=== PATIENT | female | born 1990 | race Caucasian/White ===

== ENCOUNTER 2017-08-02 20:24 | Emergency (ER) | payer OTHER ==
[2017-08-02 20:44] VITALS: BP 115/69; PULSE 86; TEMP 98.3; BMI 43.9
--- NOTE | 2017-08-02 22:18 | PDOC ---
History of Present Illness - General Chief Complaint: Urinary Problem Stated Complaint: PAIN, ACUTE Time Seen by Provider: 08/02/17 21:29 Past History - Past Medical History Allergies/Adverse Reactions: Allergies Allergy/AdvReac Type Severity Reaction Status Date / Time codeine [Codeine] Allergy Severe Rash Verified 08/02/17 20:44 Home Medications: Ambulatory Orders Cephalexin Monohydrate [Keflex -] 500 mg PO BID #14 capsule 08/02/17 Phenazopyridine HCl [Pyridium -] 100 mg PO TID #15 tablet 08/02/17 Thyroid Disease: Yes (HYPERTHYRODISM) - Immunization History Immunization Up to Date: Yes - Psycho/Social/Smoking Cessation Hx Anxiety: No Suicidal Ideation: No Smoking Status: Yes Smoking History: Never smoked Have you smoked in the past 12 months: No Number of Cigarettes Smoked Daily: 6 If you are a former smoker, when did you quit?: no Cigars Per Day: 5 Information on smoking cessation initiated: No 'Breaking Loose' booklet given: 10/04/13 Hx Alcohol Use: No Drug/Substance Use Hx: No Substance Use Type: None *Physical Exam - Vital Signs Last Vital Signs Temp Pulse Resp BP Pulse Ox 98.3 F 86 16 115/69 100 08/02/17 20:42 08/02/17 20:42 08/02/17 20:42 08/02/17 20:42 08/02/17 20:42 ED Treatment Course - ADDITIONAL ORDERS Additional order review: Laboratory Results 08/02/17 21:10 Urine HCG, Qual Negative *DC/Admit/Observation/Transfer Diagnosis at time of Disposition: UTI (urinary tract infection) Qualifiers: Urinary tract infection type: acute cystitis Hematuria presence: with hematuria Qualified Code(s): N30.01 - Acute cystitis with hematuria - Discharge Dispostion Disposition: HOME Condition at time of disposition: Good Admit: No - Prescriptions Prescriptions: Cephalexin Monohydrate [Keflex -] 500 mg PO BID #14 capsule Phenazopyridine HCl [Pyridium -] 100 mg PO TID #15 tablet - Referrals Referrals: Porsha Ramírez MD [Primary Care Provider] - - Patient Instructions Printed Discharge Instructions: DI for Urinary Tract Infection (UTI) Additional Instructions: Your urine was negative today, however given all of your symptoms, we decided to treat you for a UTI. Take the Keflex as prescribed (antibiotic) take the whole prescription even if you feel better. Take the pyridium after meals to help with the burning. Drink plenty of fluids. Take motrin as needed for pain. Follow up with your primary care doctor next week. Return to the ED if you have worsening pain, fevers, chills, back pain, or any changes in your symptoms
[2017-08-02 22:27] LABS: URINE APPEARANCE CLEAR; URINE BILIRUBIN NEGATIVE (NEGATIVE); URINE BLOOD 1+ (NEGATIVE); URINE COLOR STRAW; URINE GLUCOSE (UA) NEGATIVE (NEGATIVE); URINE KETONE NEGATIVE (NEGATIVE); URINE LEUK ESTERASE NEGATIVE (NEGATIVE); URINE NITRITE NEGATIVE (NEGATIVE); URINE PROTEIN NEGATIVE (NEGATIVE); URINE UROBILINOGEN NEGATIVE mg/dL (0.2-1.0)
[2017-08-02 22:31] LABS: URINE BACTERIA RARE /hpf (NONE SEEN); URINE MUCUS RARE; URINE RBC <1 /hpf (0-3); URINE WBC 1 /hpf (3-5)
== END 2017-08-02 23:06 | disposition home or self-care (01) ==
LOC: SUPCPDRO 20:24 → JERFT 20:24 → JER 20:24 → JERFT 23:06
DX: N30.01 Acute cystitis with hematuria (principal); E05.90 Thyrotoxicosis, unspecified without thyrotoxic crisis or storm
CPT/HCPCS: 81003; 81015; 84703; 87086; 99281-25

== ENCOUNTER 2017-12-18 19:42 | Emergency (ER) | payer OTHER ==
[2017-12-18 20:03] VITALS: BP 148/88; PULSE 89; TEMP 98.2; BMI 42.4
--- NOTE | 2017-12-18 20:06 | PDOC ---
Rapid Medical Evaluation Time Seen by Provider: 12/18/17 19:55 Medical Evaluation: Allergies Allergy/AdvReac Type Severity Reaction Status Date / Time codeine [Codeine] Allergy Severe Rash Verified 08/02/17 20:44 12/18/17 19:56 Pt with c/o: irritation to new tattoo ( 4 days ago) on rt arm. no fever, keeps uncovers, occurred with previous tattoo Pt on brief exam: noted vesicles to left forearm. no streaking, no drainage Pt ordered for: none Pt to proceed to the ED Discharge Disposition - Diagnosis Skin irritation - Referrals - Patient Instructions - Post Discharge Activity
--- NOTE | 2017-12-18 21:24 | PDOC ---
History of Present Illness - General Chief Complaint: Rash Stated Complaint: RASH Time Seen by Provider: 12/18/17 19:55 History Source: Patient Exam Limitations: No Limitations - History of Present Illness Initial Comments: 12/18/17 21:19 The 27-year-old woman with past medical history of hypothyroidism who presents emergency Department with erythema to tattoo on her right forearm which was done 4 days ago. Patient states she's been applying Bactine and bacitracin to the tattoo but now has had minor. When drainage and erythema. Patient had similar episode 2 another tattoo done multiple years ago for which she was prescribed "antibiotic cream" which cleared the infection. She denies fevers, chills, shortness of breath, numbness or tingling to fingers or hand unaffected arm. Past History - Past Medical History Allergies/Adverse Reactions: Allergies Allergy/AdvReac Type Severity Reaction Status Date / Time codeine [Codeine] Allergy Severe Rash Verified 12/18/17 20:03 Home Medications: Ambulatory Orders Mupirocin Ointment [Bactroban] 1 applic TP TID #1 tube 12/18/17 Thyroid Disease: Yes (HYPERTHYRODISM) - Immunization History Immunization Up to Date: Yes - Suicide/Smoking/Psychosocial Hx Smoking Status: Yes Smoking History: Never smoked Have you smoked in the past 12 months: No Number of Cigarettes Smoked Daily: 6 If you are a former smoker, when did you quit?: no Cigars Per Day: 5 'Breaking Loose' booklet given: 10/04/13 Hx Alcohol Use: No Drug/Substance Use Hx: No Substance Use Type: None Review of Systems - Review of Systems Able to Perform ROS?: Yes Is the patient limited Urdu proficient: No Constitutional: No: Symptoms Reported HEENTM: No: Symptoms Reported Respiratory: No: Symptoms reported Cardiac (ROS): No: Symptoms Reported ABD/GI: No: Symptoms Reported : No: Symptoms Reported Musculoskeletal: No: Symptoms Reported Integumentary: Yes: See HPI Neurological: No: Symptoms reported Endocrine: No: Symptoms Reported *Physical Exam - Vital Signs Last Vital Signs Temp Pulse Resp BP Pulse Ox 98.2 F 89 20 148/88 99 12/18/17 20:00 12/18/17 20:00 12/18/17 20:00 12/18/17 20:00 12/18/17 20:00 - Physical Exam Respiratory/Chest: positive: Lungs Clear, Normal Breath Sounds. negative: Respiratory Distress, Accessory Muscle Use Cardiovascular: positive: Regular Rhythm, Regular Rate. negative: Edema, Murmur Integumentary: positive: Other (Erythema and minimal drainage noted from tattoo on the volar and dorsal aspects of her right forearm. No streaking present.) Neurologic: positive: Alert, Normal Response, Motor Strength 5/5 Medical Decision Making - Medical Decision Making 12/18/17 21:21 A/P: 27-year-old female with cellulitis with minimal purulent drainage noted to tattoo placed 4 days ago. Discharge patient Prescription for Bactroban *DC/Admit/Observation/Transfer Diagnosis at time of Disposition: Cellulitis Qualifiers: Site of cellulitis: extremity Site of cellulitis of extremity: upper extremity Laterality: right Qualified Code(s): L03.113 - Cellulitis of right upper limb - Discharge Dispostion Disposition: HOME Condition at time of disposition: Stable Admit: No - Prescriptions Prescriptions: Mupirocin Ointment [Bactroban] 1 applic TP TID #1 tube - Referrals Referrals: Porsha Ramírez MD [Primary Care Provider] - - Patient Instructions Additional Instructions: Keep affected area clean. Apply mupirocin ointment to affected area 3 times a day. Return to primary doctor or this ER in 3 days for wound check. Return to emergency department sooner if he notices any streaking in your arm, worsening redness, worsening pain, worsening drainage or any other concerns. Thank you very much for choosing to provide your emergent healthcare needs. - Post Discharge Activity
== END 2017-12-18 21:29 | disposition home or self-care (01) ==
LOC: JERFT 19:42
DX: L03.113 Cellulitis of right upper limb (principal); E03.9 Hypothyroidism, unspecified
CPT/HCPCS: 99281-25

== ENCOUNTER 2018-02-12 15:37 | Emergency (ER) | payer SELFPAY ==
[2018-02-12 15:54] VITALS: BMI 42.0
[2018-02-12] MEDS ORDERED: SODIUM CHLORIDE 1,000 ML IV STA (17:06)
[2018-02-12] MEDS ORDERED: ONDANSETRON 4 MG/2 ML VIAL IVPUSH ONE (17:06)
[2018-02-12] MEDS ORDERED: FAMOTIDINE 20 MG/50 ML IVPB 20 MG/50 ML MG IVPB ONE ×2 (17:15→17:49)
--- NOTE | 2018-02-12 17:21 | PDOC ---
Attending Attestation - Resident Resident Name: Mason Falcon - ED Attending Attestation I have performed the following: I have examined & evaluated the patient, The case was reviewed & discussed with the resident, I agree w/resident's findings & plan, Exceptions are as noted - HPI HPI: 02/12/18 17:20 27 yo female p/w 2 days of vomiting and diarrhea,no sick contacts No fever - Physicial Exam PE: 02/12/18 17:21 heavy set 27 yo female with epigastric discomfort after vomiting 02/12/18 18:[address] Falcon physicial exam - Medical Decision Making 02/12/18 18:53 UA + nitrite will treat IMP Gastroenteritis/UTI discharge home w antibiotics
--- NOTE | 2018-02-12 17:35 | PDOC ---
History of Present Illness - General Chief Complaint: Pain, Acute Stated Complaint: NAUSEA/VOMITING Time Seen by Provider: 02/12/18 16:52 History Source: Patient Exam Limitations: No Limitations - History of Present Illness Initial Comments: 02/12/18 17:25 Patient is a 27F with no significant medical history here today complaining of 36 hours of nausea, vomiting and diarrhea. Patient endorses associated upper abdominal pain that started after multiple episodes of vomiting. Patient states that she is currently on he rmenstrual period. Last bowel movment was 20 minutes prior to presentation. Denies pain with urination. Denies fevers, endorses chills. Patient has tolerated small amounts of gatorade and some soup. Past History - Past Medical History Allergies/Adverse Reactions: Allergies Allergy/AdvReac Type Severity Reaction Status Date / Time codeine [Codeine] Allergy Severe Rash Verified 02/12/18 15:52 Home Medications: Ambulatory Orders Cephalexin Monohydrate [Keflex -] 500 mg PO BID #14 capsule 02/12/18 Ondansetron HCl [Zofran] 4 mg PO BID PRN #6 tablet 02/12/18 COPD: No Thyroid Disease: Yes (HYPERTHYRODISM) - Immunization History Immunization Up to Date: Yes - Suicide/Smoking/Psychosocial Hx Smoking Status: Yes Smoking History: Former smoker Have you smoked in the past 12 months: No Number of Cigarettes Smoked Daily: 6 If you are a former smoker, when did you quit?: no Cigars Per Day: 5 Information on smoking cessation initiated: No 'Breaking Loose' booklet given: 10/04/13 Hx Alcohol Use: No Drug/Substance Use Hx: No Substance Use Type: None Review of Systems - Review of Systems Comments:: 02/12/18 17:38 GENERAL/CONSTITUTIONAL: No fever or chills. No weakness. HEAD, EYES, EARS, NOSE AND THROAT: No change in vision. No sore throat. CARDIOVASCULAR: No chest pain or shortness of breath RESPIRATORY: No cough, wheezing, or hemoptysis. GASTROINTESTINAL: Positive for nausea, vomiting, diarrhea. GENITOURINARY: No dysuria, frequency, or change in urination. MUSCULOSKELETAL: No joint or muscle swelling or pain. No neck or back pain. SKIN: No rash NEUROLOGIC: No headache, vertigo, loss of consciousness, or change in strength/ sensation. HEMATOLOGIC/LYMPHATIC: No anemia, easy bleeding, or history of blood clots. ALLERGIC/IMMUNOLOGIC: No hives or skin allergy. *Physical Exam - Vital Signs Last Vital Signs Temp Pulse Resp BP Pulse Ox 97.9 F 83 19 112/71 99 02/12/18 15:52 02/12/18 15:52 02/12/18 15:52 02/12/18 15:52 02/12/18 15:52 - Physical Exam Comments: 02/12/18 17:38 GENERAL: Awake, alert, and fully oriented, in no acute distress HEAD: No signs of trauma, normocephalic, atraumatic EYES: PERRLA, EOMI, sclera anicteric, conjunctiva clear ENT: Auricles normal inspection, hearing grossly normal, nares patent, oropharynx clear without exudates. Dry mucosa NECK: Normal ROM, supple, no lymphadenopathy, JVD, or masses LUNGS: No distress, speaks full sentences, clear to auscultation bilaterally HEART: Regular rate and rhythm, normal S1 and S2, no murmurs, rubs or gallops, peripheral pulses normal and equal bilaterally. ABDOMEN: Soft, nontender, normoactive bowel sounds. No guarding, no rebound. No masses EXTREMITIES: Normal inspection, Normal range of motion, no edema. No clubbing or cyanosis. NEUROLOGICAL: Cranial nerves II through XII grossly intact. Normal speech, normal gait, no focal sensorimotor deficits SKIN: Warm, Dry, normal turgor, no rashes or lesions noted. ED Treatment Course - LABORATORY CBC & Chemistry Diagram: 02/12/18 17:28 02/12/18 17:28 Medical Decision Making - Medical Decision Making 02/12/18 17:39 Patient is 27F here today with vomiting and diarrhea. Normal vital signs, no abdominal pain on exam. Will evaluate further with cbc, cmp, lipase, ua, upreg. Will treat with pepcid, fluids and zofran. Likely discharge home. 02/12/18 18:48 Laboratory Tests 02/12/18 02/12/18 17:28 17:28 WBC 7.9 Hgb 12.7 Hct 37.2 Plt Count 301 Urine Nitrite Positive Urine WBC (Auto) 52 CBC normal. UA shows nitrite positive, more rbcs than wbcs. Suspect dirty sample but will treat due to nitrites. 02/12/18 19:12 CMP reassuring. Patient tolerating PO. Will discharge home with return precautions. *DC/Admit/Observation/Transfer Diagnosis at time of Disposition: Viral gastroenteritis - Discharge Dispostion Disposition: HOME Condition at time of disposition: Stable - Prescriptions Prescriptions: Cephalexin Monohydrate [Keflex -] 500 mg PO BID #14 capsule Ondansetron HCl [Zofran] 4 mg PO BID PRN #6 tablet PRN Reason: Nausea And/Or Vomiting - Referrals Referrals: Porsha Ramírez MD [Primary Care Provider] - - Patient Instructions Printed Discharge Instructions: DI for Viral Gastroenteritis -- Adult Additional Instructions: Please return if you have any new, worsening or concerning symptoms. Please follow up with your primary care physician this week. - Post Discharge Activity Forms/Work/School Notes: Back to Work
[2018-02-12] MEDS ORDERED: ONDANSETRON 4 MG/2 ML VIAL ONE (17:49)
[2018-02-12 18:31] LABS: EOS % 2.4 % (0-4.5); HEMATOCRIT 37.2 % (32.4-45.2); HEMOGLOBIN 12.7 GM/dL (10.7-15.3); LYMPH % 38.7 % (8-40); MCH 29.4 pg (25.7-33.7); MCHC 34.1 g/dl (32.0-36.0); MEAN CELL VOLUME 86.4 fl (80-96); MEAN PLT VOLUME 10.5 fl (7.5-11.1); MONO % 10.8 % (3.8-10.2); NEUT % 47.1 % (42.8-82.8); PLATELET COUNT 301 K/MM3 (134-434); RBC 4.31 M/mm3 (3.60-5.2); RDW 14.2 % (11.6-15.6); WHITE BLOOD COUNT 7.9 K/mm3 (4.0-10.0)
[2018-02-12 18:36] LABS: URINE APPEARANCE CLEAR; URINE BILIRUBIN 1+ (<2.0 mg/dL); URINE BLOOD 3+ (NEGATIVE); URINE COLOR DK. RED; URINE GLUCOSE (UA) NEGATIVE (NEGATIVE); URINE KETONE TRACE (NEGATIVE); URINE LEUK ESTERASE TRACE (NEGATIVE); URINE NITRITE POSITIVE (NEGATIVE); URINE PROTEIN 3+ (NEGATIVE)
[2018-02-12 18:37] LABS: EPI CELLS MODERATE /HPF (FEW); URINE BACTERIA RARE /hpf (NONE SEEN); URINE MUCUS RARE
[2018-02-12] MEDS ORDERED: CEPHALEXIN MONOHYDRATE 500 MG CAPSULE (UD) PO ONE (18:46)
[2018-02-12] MEDS ORDERED: CEPHALEXIN MONOHYDRATE 250 MG CAPSULE (FP) ONE (18:49)
[2018-02-12 18:57] LABS: ALBUMIN 3.7 g/dl (3.4-5.0); ANION GAP 4 (8-16); BLOOD UREA NITROGEN 9 mg/dL (7-18); CALCIUM 8.7 mg/dL (8.5-10.1); CHLORIDE 106 mmol/L (98-107); CO2 28 mmol/L (21-32); CREATININE 0.9 mg/dL (0.55-1.02); GLUCOSE,RANDOM 82 mg/dL (74-106); LIPASE 111 U/L (73-393); SGPT/ALT 13 U/L (12-78); SODIUM 138 mmol/L (136-145)
[2018-02-12 18:58] LABS: ALK PHOS 55 U/L (45-117); BILIRUBIN,TOTAL 0.2 mg/dL (0.2-1.0); SGOT/AST 11 U/L (15-37); TOT PROT 6.8 g/dl (6.4-8.2)
[2018-02-12 19:58] VITALS: BP 126/78; PULSE 89; TEMP 99
== END 2018-02-12 19:58 | disposition home or self-care (01) ==
LOC: JER 15:37
PROC: 3E0337Z Introduction of Electrolytic and Water Balance Substance into Peripheral Vein, Percutaneous Approach (ICD-10-PCS; principal; 2018-02-12)
PROC: 3E033GC Introduction of Other Therapeutic Substance into Peripheral Vein, Percutaneous Approach (ICD-10-PCS; 2018-02-12)
PROC: 3E033GC Introduction of Other Therapeutic Substance into Peripheral Vein, Percutaneous Approach (ICD-10-PCS; 2018-02-12)
DX: A08.4 Viral intestinal infection, unspecified (principal); B97.89 Other viral agents as the cause of diseases classified elsewhere; N39.0 Urinary tract infection, site not specified; E05.90 Thyrotoxicosis, unspecified without thyrotoxic crisis or storm; Z87.891 Personal history of nicotine dependence
CPT/HCPCS: 36415; 80053; 81003; 81015; 83690; 84703; 85025; 99284-25; J7030

== ENCOUNTER 2018-04-30 12:02 | Emergency (ER) | payer OTHER ==
[2018-04-30 12:08] VITALS: TEMP 98.3; BMI 41.1
--- NOTE | 2018-04-30 12:58 | PDOC ---
History of Present Illness - General Chief Complaint: Pain Stated Complaint: CHEST PAIN/ABD PAIN Time Seen by Provider: 04/30/18 12:52 - History of Present Illness Initial Comments: 04/30/18 13:34 The patient is a 27 year old female with a history of hyperthyroidism who presents for evaluation of lower abdominal pain. The patient notes that she has been experiencing intermittent lower abdominal cramping over the past several days. She believes the pain to be due to her IUD which has been in place since 2013. She states that she schedule an appointment with her federal judicial law clerk Dr. Hart/Dr. Lim in 4 days to be evaluated, but has been experiencing worsening lower abdominal pain over the past 2 days prompting her presentation to the ED for further evaluation. She denies any vaginal bleeding, vaginal discharge, pain with urination and otherwise denies fevers, chills, SOB, chest pain, nausea, vomiting, or changes with bowel movements. Past History - Past Medical History Allergies/Adverse Reactions: Allergies Allergy/AdvReac Type Severity Reaction Status Date / Time codeine [Codeine] Allergy Severe Rash Verified 04/30/18 12:03 CVA: Yes COPD: No Thyroid Disease: Yes (HYPERTHYRODISM) - Reproductive History (#): 2 Para: 2 - Immunization History Immunization Up to Date: Yes - Suicide/Smoking/Psychosocial Hx Smoking Status: Yes Smoking History: Former smoker Have you smoked in the past 12 months: No Number of Cigarettes Smoked Daily: 6 If you are a former smoker, when did you quit?: no Cigars Per Day: 5 Information on smoking cessation initiated: No 'Breaking Loose' booklet given: 10/04/13 Hx Alcohol Use: No Drug/Substance Use Hx: No Substance Use Type: None Review of Systems - Review of Systems Comments:: 04/30/18 13:38 Constitutional: No fevers, chills, fatigue, malaise HEENT: No Rhinorrhea, nasal congestion, visual changes Cardiovascular: No chest pain, syncope, palpitations, lightheadedness Respiratory: No Cough, SOB, Hemoptysis, Gastrointestinal: Lower abdominal pain. No Nausea, Vomiting, Constipation, Diarrhea, Melena Genitourinary: No Dysuria, Frequency, Urgency, Hesitancy, Hematuria, Flank pain Musculoskeletal: No Myalgia, arthralgia Skin: No rashes, itching, bruising, pallor Neurologic: No Headache, Dizziness, Numbness, Weakness, or Tingling Psychiatric: No Hallucinations. No SI or HI *Physical Exam - Vital Signs Last Vital Signs Temp Pulse Resp BP Pulse Ox 98.3 F 92 H 18 108/71 100 04/30/18 12:06 04/30/18 12:06 04/30/18 12:06 04/30/18 12:06 04/30/18 12:06 - Physical Exam Comments: 04/30/18 13:38 General Appearance: Nourished. No Apparent Distress HEENT: EOMI, OBED. No Pharyngeal Erythema, Tonsillar Exudate, Tonsillar Erythema Neck: No Cervical Lymphadenopathy Respiratory/Chest: Lungs Clear, Normal Breath Sounds. No Crackles, Rales, Rhonchi, Wheezing Cardiovascular: Regular Rhythm, Regular Rate. No Murmur, Gallops, Rubs Gastrointestinal/Abdominal: Normal Bowel Sounds, Soft. Mild Suprapubic tenderness to deep palpation on exam. No Guarding, Rebound, Musculoskeletal: No CVA Tenderness Extremity: Normal Capillary Refill Integumentary: Normal Color, Dry, Warm Neurologic: Fully Oriented, Alert, Normal Mood/Affect, Normal Response, Medical Decision Making - Medical Decision Making 04/30/18 13:40 The patient is a 27 year old female with a history of hyperthyroidism who presents for evaluation of lower abdominal pain. Differential includes but is not limited to: UTI, Cyst, Infectious. Given the patient's history and physical exam, we will obtain a ua, urine preg, and transvaginal us to evaluate further for possible etiologies. We will treat with tylenol here in the ED and continue to monitor and reassess in the meantime. 04/30/18 15:03 UA, urine preg are unremarkable. Transvaginal US demonstrates a malpositioned IUD. We discussed the case with Dr. Hart who is comfortable following up with the patient at her scheduled appointment. We are comfortable discharging the patient home with activities attendant follow up. We discussed the results, plan, and return precautions with the patient who voiced understanding and is agreeable with the plan. *DC/Admit/Observation/Transfer Diagnosis at time of Disposition: Malpositioned IUD Qualifiers: Encounter type: initial encounter Qualified Code(s): T83.32XA - Displacement of intrauterine contraceptive device, initial encounter - Discharge Dispostion Disposition: HOME Condition at time of disposition: Stable Decision to Admit order: No - Referrals Referrals: Porsha Ramírez MD [Primary Care Provider] - Kelvin Hart MD [Staff Physician] - - Patient Instructions Printed Discharge Instructions: DI for Abdominal Pain-Adult Additional Instructions: Please return to the ER if you experience concerning or worsening symptoms including worsening abdominal pain, vaginal bleeding or vomiting. Your ultrasound shows that your IUD is malpositioned and will need to be removed. We have discussed your case with Dr. Hart who is aware of your case and will follow up with you on Sunday. Please call his office today to confirm your appointment. You may use ibuprofen or tylenol as needed at home to help manage your symptoms. Please refrain from intercourse until you have your IUD removed. - Post Discharge Activity
[2018-04-30] MEDS ORDERED: ACETAMINOPHEN 325 MG TABLET (FP) PO ONE (13:11)
[2018-04-30] MEDS ORDERED: ACETAMINOPHEN 325 MG TABLET (FP) ONE (13:26)
[2018-04-30 13:57] LABS: URINE APPEARANCE CLEAR; URINE BILIRUBIN NEGATIVE (<2.0 mg/dL); URINE BLOOD NEGATIVE (NEGATIVE); URINE COLOR YELLOW; URINE GLUCOSE (UA) NEGATIVE (NEGATIVE); URINE KETONE NEGATIVE (NEGATIVE); URINE LEUK ESTERASE NEGATIVE (NEGATIVE); URINE NITRITE NEGATIVE (NEGATIVE); URINE PROTEIN NEGATIVE (NEGATIVE); URINE UROBILINOGEN NEGATIVE mg/dL (0.2-1.0)
[2018-04-30 13:59] LABS: HCG,QUALITATIVE URINE NEGATIVE
--- NOTE | 2018-04-30 14:10 | PDOC ---
Attending Attestation - Resident Resident Name: Gadiel Henry - ED Attending Attestation I have performed the following: I have examined & evaluated the patient, The case was reviewed & discussed with the resident, I agree w/resident's findings & plan - HPI HPI: 04/30/18 14:07 Healthy 27-year-old female with indwelling IUD for about 4 years presents with 2 days of worsening suprapubic/left pelvic pain, no associated vaginal bleeding/ discharge, no dysuria/frequency/hematuria. No diarrhea or constipation. Monogamous without history of STI. Has no known history of ovarian cysts or fibroids. Patient has no appointment with her LICENSED PSYCHOLOGIST MANAGER on Sunday but presents today for further evaluation. - Physicial Exam PE: 04/30/18 14:08 Vital signs normal, afebrile Well-appearing and comfortable Abdomen is soft/nondistended. Suprapubic and left pelvic discomfort to palpation without guarding or rebound. No CVA tenderness Pelvic per resident - Medical Decision Making 04/30/18 14:09 27-year-old female with suprapubic/left pelvic pain, long-standing indwelling IUD. Question ovarian cysts versus fibroids, rule out UTI, seems less likely consistent with PID or LICENSED PSYCHOLOGIST MANAGER infection. Urinalysis, urine Pelvic ultrasound Reassess and disposition accordingly with LICENSED PSYCHOLOGIST MANAGER follow-up as scheduled on sunday
[2018-04-30 15:33] VITALS: BP 102/60; PULSE 85
--- NOTE | 2018-05-02 15:38 | EKG ---
Test Reason : Blood Pressure : / mmHG Vent. Rate : 094 BPM Atrial Rate : 094 BPM P-R Int : 154 ms QRS Dur : 086 ms QT Int : 358 ms P-R-T Axes : 045 053 033 degrees QTc Int : 447 ms NORMAL SINUS RHYTHM NORMAL ECG NO PREVIOUS ECGS AVAILABLE Confirmed by MIREILLE KEANE MD ([id number]) on 05/02/2018 3:38:08 PM Referred By: Confirmed By:MIREILLE KEANE MD
== END 2018-04-30 15:33 | disposition home or self-care (01) ==
LOC: JER 12:02
DX: T83.32XA Displacement of intrauterine contraceptive device, initial encounter (principal); X58.XXXA Exposure to other specified factors, initial encounter; Y93.89 Activity, other specified
CPT/HCPCS: 76830-TC; 81003; 84703; 87086; 93005; 93010; 99284-25

== ENCOUNTER 2019-02-05 07:51 | Emergency (ER) | payer OTHER ==
[2019-02-05 07:56] VITALS: BP 102/65; PULSE 84; TEMP 97.8; BMI 39.3
--- NOTE | 2019-02-05 08:43 | PDOC ---
History of Present Illness - General Chief Complaint: Sore Throat Stated Complaint: Sore throat, cough, body aches Time Seen by Provider: 02/05/19 08:26 History Source: Patient Exam Limitations: No Limitations - History of Present Illness Initial Comments: 02/05/19 08:40 Complaints acute onset of, total body aches, fevers, chills, ear and throat pain , moist nonproductive cough. Works in a school Past History - Travel Traveled outside of the country in the last 30 days: No Close contact w/someone who was outside of country & ill: No - Past Medical History Allergies/Adverse Reactions: Allergies Allergy/AdvReac Type Severity Reaction Status Date / Time codeine [Codeine] Allergy Severe Rash Verified 02/05/19 07:56 Home Medications: Ambulatory Orders Oseltamivir Phosphate [Tamiflu -] 75 mg PO BID #10 capsule 02/05/19 CVA: Yes COPD: No Thyroid Disease: Yes (HYPERTHYRODISM) - Reproductive History (#): 2 Para: 2 - Immunization History Immunization Up to Date: Yes - Suicide/Smoking/Psychosocial Hx Smoking Status: Yes Smoking History: Never smoked Have you smoked in the past 12 months: No Number of Cigarettes Smoked Daily: 6 If you are a former smoker, when did you quit?: no Cigars Per Day: 5 Information on smoking cessation initiated: No 'Breaking Loose' booklet given: 10/04/13 Hx Alcohol Use: No Drug/Substance Use Hx: No Substance Use Type: None Review of Systems - Review of Systems Able to Perform ROS?: Yes Is the patient limited Nepali proficient: Yes Constitutional: Yes: Symptoms Reported, See HPI, Chills, Fever, Loss of Appetite , Malaise HEENTM: Yes: Symptoms Reported, See HPI, Nose Congestion, Throat Pain Respiratory: Yes: Symptoms reported, See HPI, Cough Cardiac (ROS): No: Symptoms Reported ABD/GI: Yes: Symptoms Reported, Nausea Musculoskeletal: Yes: Symptoms Reported, See HPI, Muscle Pain Integumentary: Yes: Symptoms Reported All Other Systems: Reviewed and Negative *Physical Exam - Vital Signs Last Vital Signs Temp Pulse Resp BP Pulse Ox 97.8 F 84 18 102/65 99 02/05/19 07:54 02/05/19 07:54 02/05/19 07:54 02/05/19 07:54 02/05/19 07:54 - Physical Exam Comments: 02/05/19 08:42 GENERAL: [ The pateint is awake, alert, and appropriately interactive.] EYES: [The pupils are equal, round, and reactive to light, with clear, conjunctiva.but glassy] NOSE: [The nose with clear drainage EARS: [The ear canals and tympanic membranes are congested but landmarks easily visualed ] THROAT: [The oropharynx is clear with erythema, no exudates. The mucous membranes are moist.] NECK: [The neck is supple with mildly tender adenopathy, no menigemous] CHEST: [The lungs are coarse but clear without crackles, or wheezes.] HEART: [Heart is regular rhythm, with normal S1 and S2, no murmurs.] ABDOMEN: [The abdomen is soft and nontender with normal bowel sounds. There is no organomegaly and no mass. There is no guarding or rebound.] EXTREMITIES: [Extremities are normal.] NEURO: [Behavior is normal for age.cranky but easily, Tone is normal.] SKIN: [Skin is unremarkable without rash or swelling. There is no bruising, and there are no other signs of injury.] General Appearance: Yes: Nourished, Appropriately Dressed, Apparent Distress Moderate Sedation - Procedure Monitoring Vital Signs: Procedure Monitoring Vital Signs Temperature 97.8 F 02/05/19 07:54 Pulse Rate 84 02/05/19 07:54 Respiratory Rate 18 02/05/19 07:54 Blood Pressure 102/65 02/05/19 07:54 O2 Sat by Pulse Oximetry (%) 99 02/05/19 07:54 Progress Note - Progress Note Progress Note: Clinical evidence of influenza, will treat with Tamiflu *DC/Admit/Observation/Transfer Diagnosis at time of Disposition: Influenzal acute upper respiratory infection - Discharge Dispostion Disposition: HOME Condition at time of disposition: Stable Decision to Admit order: No - Prescriptions Prescriptions: Oseltamivir Phosphate [Tamiflu -] 75 mg PO BID #10 capsule - Referrals Referrals: Porsha Ramírez MD [Primary Care Provider] - - Patient Instructions Printed Discharge Instructions: DI for Viral Upper Respiratory Infection -- Adult Additional Instructions: Rest, drink lots of fluids: Teas, water, soups, Pedialyte Saltwater gargles Steamy showers/seem to face break up mucus Old-fashioned treatments help! Avoid contact with others until fevers and cough resolved as this is very contagious Lots of handwashing and good hygiene Continue [id number] medications for symptomatic relief Tylenol or Motrin for fever and pain Take all of Tamiflu as directed: 1 tab every 12 hours for 5 days Followup with private physician in one to 2 days as needed or if worsening Return to emergency department for worsened symptoms, fevers, dehydration Influenza takes between 5 and 7 days for resolution To not participate in any activity, work, or school until fevers and cough are gone for at least one day - Post Discharge Activity Forms/Work/School Notes: Back to Work, Back to School
== END 2019-02-05 08:48 | disposition home or self-care (01) ==
LOC: JER 07:51 → JERFT 07:51
DX: J11.1 Influenza due to unidentified influenza virus with other respiratory manifestations (principal); Z87.891 Personal history of nicotine dependence; E07.9 Disorder of thyroid, unspecified; Z86.73 Personal history of transient ischemic attack (TIA), and cerebral infarction without residual deficits
CPT/HCPCS: 99281-25

== ENCOUNTER 2020-01-02 21:42 | Emergency (ER) | payer OTHER ==
[2020-01-02 21:50] VITALS: BP 113/79; PULSE 107; TEMP 98.1; BMI 40.2
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
[2020-01-02] MEDS ORDERED: ACETAMINOPHEN 325 MG TABLET (FP) PO ONE (22:46)
[2020-01-02] MEDS ORDERED: TETANUS AND DIPHTHERIA TOXOID 0.5 ML DISP.SYRIN IM ONE (22:46)
[2020-01-02] MEDS ORDERED: DIPHTH,PERTUSS(ACELL),TET 0.5 ML DISP.SYRIN IM ONE ×2 (22:48→22:49)
[2020-01-02] MEDS ORDERED: ACETAMINOPHEN 325 MG TABLET (FP) ONE (22:49)
== END 2020-01-02 23:22 | disposition home or self-care (01) ==
LOC: JERFT 21:42
PROC: 3E0234Z Introduction of Serum, Toxoid and Vaccine into Muscle, Percutaneous Approach (ICD-10-PCS; principal; 2020-01-02)
DX: S00.81XA Abrasion of other part of head, initial encounter (principal); X99.8XXA Assault by other sharp object, initial encounter; Y93.89 Activity, other specified; Y92.481 Parking lot as the place of occurrence of the external cause; Y99.8 Other external cause status; E05.90 Thyrotoxicosis, unspecified without thyrotoxic crisis or storm; Z86.73 Personal history of transient ischemic attack (TIA), and cerebral infarction without residual deficits; Z88.5 Allergy status to narcotic agent
CPT/HCPCS: 90715; 99282-25

== ENCOUNTER 2023-07-11 10:17 | Emergency (ER) | payer OTHER ==
[2023-07-11 10:39] VITALS: BP 103/70; PULSE 87; RESP 18; TEMP 98.6; BMI 46.3
[2023-07-11] MEDS ORDERED: IBUPROFEN 600 MG TABLET (FP) PO ONE ×2 (11:11→11:25)
[2023-07-11] MEDS ORDERED: KETOROLAC TROMETHAMINE 30 MG/1 ML VIAL IM ONE (12:18)
[2023-07-11] MEDS ORDERED: KETOROLAC TROMETHAMINE 15 MG/ML VIAL ONE (12:21)
== END 2023-07-11 13:45 | disposition home or self-care (01) ==
LOC: JER 10:17 → JERFT 10:17
PROC: 0PSPXZZ Reposition Right Metacarpal, External Approach (ICD-10-PCS; principal; 2023-07-11)
PROC: 3E0233Z Introduction of Anti-inflammatory into Muscle, Percutaneous Approach (ICD-10-PCS; 2023-07-11)
DX: S62.334A Displaced fracture of neck of fourth metacarpal bone, right hand, initial encounter for closed fracture (principal); M79.641 Pain in right hand; R22.31 Localized swelling, mass and lump, right upper limb; W20.8XXA Other cause of strike by thrown, projected or falling object, initial encounter
CPT/HCPCS: 73110-TC-RT-FY; 73130-TC-RT-FY; 99284-25

== ENCOUNTER 2024-09-13 11:42 | Emergency (ER) | payer OTHER ==
[2024-09-13 11:54] VITALS: BP 113/65; PULSE 89; RESP 18; TEMP 98; BMI 43.4
[2024-09-13] MEDS ORDERED: LIDOCAINE 4% PATCH TP ONE (12:27)
[2024-09-13] MEDS ORDERED: KETOROLAC TROMETHAMINE 30 MG/1 ML VIAL ONE (12:27)
[2024-09-13] MEDS: LIDOCAINE 5% TOPICAL PATCH TP ONE (12:32)
[2024-09-13] MEDS: KETOROLAC TROMETHAMINE 30 MG/1 ML VIAL IM ONE (12:32)
[2024-09-13] MEDS ORDERED: LIDOCAINE PATCH REMOVAL MC ONE (22:00)
== END 2024-09-13 12:44 | disposition home or self-care (01) ==
LOC: JERFT 11:42
PROC: 3E0133Z Introduction of Anti-inflammatory into Subcutaneous Tissue, Percutaneous Approach (ICD-10-PCS; principal; 2024-09-13)
DX: M54.50 Low back pain, unspecified (principal); M25.561 Pain in right knee; M25.562 Pain in left knee
CPT/HCPCS: 99284-25

== ENCOUNTER 2024-11-27 16:05 | Emergency (ER) | payer OTHER ==
[2024-11-27 16:19] VITALS: BP 132/82; PULSE 94; RESP 18; TEMP 98.7; BMI 42.5
[2024-11-27] MEDS ORDERED: ACETAMINOPHEN 500 MG TABLET (FP) ONE (17:47)
[2024-11-27] MEDS: ACETAMINOPHEN 500 MG TABLET (FP) PO ONE (17:49)
[2024-11-27 19:25] LABS: HIV INTERPRETATION NEGATIVE (NEGATIVE)
== END 2024-11-27 17:55 | disposition home or self-care (01) ==
LOC: JERFT 16:05 → JER 16:05 → JERFT 17:55
DX: M54.50 Low back pain, unspecified (principal); M25.562 Pain in left knee; V49.50XA Passenger injured in collision with unspecified motor vehicles in traffic accident, initial encounter
CPT/HCPCS: 36415; 86803; 87389; 99283-25